=== PATIENT | female | born 1990 | race Two or more races ===

== ENCOUNTER 2020-03-18 03:00 | Emergency (ER) | payer BC, OTHER ==
[~2020-03-18] VITALS: Ht 172.7 cm; Wt 90.7 kg
[2020-03-18 03:26] LABS: BASOPHILS # (AUTO) 0.1 K/uL (0.0-8.0); BASOPHILS % (AUTO) 0.5 % (0.0-2.0); EOSINOPHILS % (AUTO) 0.2 % (0.0-7.0); HEMATOCRIT 40.5 % (31.2-41.9); HEMOGLOBIN 13.7 g/dL (10.9-14.3); LYMPHOCYTES # (AUTO) 2.7 K/uL (20.0-40.0); LYMPHOCYTES % (AUTO) 19.6 % (20.5-51.5); MEAN CORPUSCULAR HEMOGLOBIN 29.7 uug (24.7-32.8); MEAN CORPUSCULAR HGB CONC 34 g/dL (32.3-35.6); MEAN CORPUSCULAR VOLUME 87.7 fL (75.5-95.3); MONOCYTES # (AUTO) 1.1 K/uL (2.0-10.0); MONOCYTES % (AUTO) 8.2 % (0.0-11.0); NEUTROPHILS # (AUTO) 9.7 K/uL (1.8-8.9); NEUTROPHILS % (AUTO) 71.5 % (38.5-71.5); PLATELET COUNT (AUTO) 391 K/uL (179-408); RED BLOOD CELL COUNT(AUTO) 4.62 MIL/uL (3.63-4.92); WHITE BLOOD COUNT (AUTO) 13.5 K/uL (3.8-11.8)
[2020-03-18 03:34] LABS: CARBON DIOXIDE 23 mmol/L (21-32); CHLORIDE 105 mmol/L (98-107); GLUCOSE 103 mg/dL (74-106); POTASSIUM 3.2 mmol/L (3.5-5.1); UREA NITROGEN, BLOOD 15 mg/dL (7-18)
--- NOTE | 2020-03-18 03:36 | NUR ---
pt out of er for CT and xray
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
[2020-03-18 03:39] LABS: ALANINE AMINOTRANSFERASE 33 U/L (14-59); ALKALINE PHOSPHATASE 77 U/L (50-136); ASPARTATE AMINOTRANSFERASE 20 U/L (15-37); BILIRUBIN,DIRECT 0.2 mg/dL (0.0-0.2); BILIRUBIN,TOTAL 0.7 mg/dL (0.2-1.0); TOTAL PROTEIN, SERUM 8.2 g/dL (6.4-8.2)
[2020-03-18 03:41] LABS: ACETAMINOPHEN < 2.0 ug/mL (10-30); ETHANOL < 3 MG/DL (0-0)
[2020-03-18 03:47] LABS: THYROID STIMULATING HORMONE 1.551 mIU/mL (0.358-3.740)
--- NOTE | 2020-03-18 03:52 | NUR ---
pt back from CT and xray
--- NOTE | 2020-03-18 04:20 | NUR ---
Patient attempting to elope ER. Patient confused, selectively answering question. DR To into re eval patient.
--- NOTE | 2020-03-18 04:27 | NUR ---
Removed patient's clothing & placed in bag. Patient changed to hospital gown.
--- NOTE | 2020-03-18 04:30 | NUR ---
PT AGITATED, LABILE, SCREAMING CONFUSED, UNABLE TO REDIRECT AT THIS TIME.
--- NOTE | 2020-03-18 05:23 | NUR ---
straight cath done with assistance from Charge nurse NITZA Ribera, Security Payton, and security Wilkinson. no trauma, no bleeding noted
[2020-03-18 05:24] LABS: *BILIRUBIN,URIN 1+ (NEGATIVE); *BLOOD, URINE 1+ (NEGATIVE); *CLARITY,URINE CLEAR (CLEAR); *COLOR,URINE DARK YELLOW (YELLOW); *KETONES,URINE 2+ (NEGATIVE); *UROBILINOGEN,URINE 0.2 E.U./dl (NORMAL); LEUKOCYTE ESTERASE ,URINE NEGATIVE (NEGATIVE); NITRITE, URINE NEGATIVE (NEGATIVE); UGLUCOSE NEGATIVE (NEGATIVE)
[2020-03-18 05:33] LABS: SQUAMOUS EPITHELIAL CELL,UR FEW /HPF (NONE SEEN); WBC,URINE 0-3 /HPF (0-3)
[2020-03-18 05:37] LABS: *AMPHETAMINE, URINE NEGATIVE (NEGATIVE); *BARBITURATE, URINE NEGATIVE (NEGATIVE); *CANNABINOID, URINE POSITIVE (NEGATIVE); *COCCAINE, URINE NEGATIVE (NEGATIVE); *OPIATE, URINE NEGATIVE (NEGATIVE); *PHENCYCLIDINE SCREEN,URINE NEGATIVE (NEGATIVE)
--- NOTE | 2020-03-18 05:50 | NUR ---
Patient is resting comfortably in bed with eyes closed. Respirations are even & unlabored. Appears in no apparent distress. Will continue to monitor.
--- NOTE | 2020-03-18 05:54 | NUR ---
Called Suzan Cuadra from [facility] to eval patient. Waiting for call back.
--- NOTE | 2020-03-18 05:59 | NUR ---
Suzan from [facility] called back. ETA 1HR.
--- NOTE | 2020-03-18 06:00 | NUR ---
PT IN BED, SCREAMING INTERMITTENTLY, UNABLE TO REDIRECT AT THIS TIME
[2020-03-18] MEDS ORDERED: OLANZAPINE 10 MG VIAL IM ONE ×2 (06:28→06:30)
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
--- NOTE | 2020-03-18 07:15 | NUR ---
Suzan Cuadra at bedside to evaluate patient
--- NOTE | 2020-03-18 07:45 | NUR ---
Patient has been psychiatrically cleared by Suzan Cuadra LCSW
--- NOTE | 2020-03-18 07:50 | NUR ---
Patient eloped from facility. ER physician notified.
== END 2020-03-18 07:50 | disposition left against medical advice (07) ==
LOC: EDBD 03:05 → ER 03:05
DX: R41.0 Disorientation, unspecified (principal); R45.1 Restlessness and agitation; E66.9 Obesity, unspecified; Z68.30 Body mass index [BMI] 30.0-30.9, adult; S20.219A Contusion of unspecified front wall of thorax, initial encounter; V49.9XXA Car occupant (driver) (passenger) injured in unspecified traffic accident, initial encounter; Y92.410 Unspecified street and highway as the place of occurrence of the external cause
CPT/HCPCS: 36415; 70450; 71045; 72125; 74176; 80048; 80076; 80307 ×2; 80329; 81001; 84443; 84702; 85025; 93005; 96372; 99285; G0480; C1758; J2358